=== PATIENT | male | born 1980 | race Caucasian/White ===

== ENCOUNTER 2016-12-15 19:40 | Inpatient (IN) | payer MEDICARE, MEDICAID ==
[~2016-12-15] VITALS: Ht 175.3 cm; Wt 68.0 kg
--- NOTE | 2016-12-15 19:45 | NUR ---
BB SELF; "SENT BY PMD I THINK I HAVE A FIB", NO C/O CHEST PAIN OR SOB. NAD NOTED, VSS, RESP EVEN AND UNLABORED, EKG DONE, PUT ON HOSPITAL GOWN, AND MONITOR. MD AT BEDSIDE.
[2016-12-15 20:57] LABS: BASOPHILS # (AUTO) 0.1 /CMM (0.0-0.2); BASOPHILS % (AUTO) 0.8 % (0.0-2.0); EOSINOPHILS % (AUTO) 0.2 % (0.0-6.0); HEMATOCRIT 49 % (39-51); HEMOGLOBIN 16.7 g/dL (13.5-17.5); LYMPHOCYTES # (AUTO) 1.9 /CMM (0.8-4.8); LYMPHOCYTES % (AUTO) 23.3 % (20.0-44.0); MEAN CORPUSCULAR HEMOGLOBIN 29 PG (26.0-33.0); MEAN CORPUSCULAR HGB CONC 34 g/dl (31.0-36.0); MEAN CORPUSCULAR VOLUME 85 fL (80-96); MONOCYTES # (AUTO) 0.6 /CMM (0.1-1.30); NEUTROPHILS # (AUTO) 5.5 /CMM (1.8-8.9); NEUTROPHILS % (AUTO) 68.7 % (43.0-81.0); PLATELET COUNT (AUTO) 315 /CMM (150-450); RDW COEFFICIENT OF VARIATION 12.3 (11.5-15.0); WHITE BLOOD COUNT (AUTO) 8.1 K/uL (4.3-11.0)
--- NOTE | 2016-12-15 20:59 | NUR ---
BLOOD SAMPLE AND URINE SENT TO LAB
--- NOTE | 2016-12-15 21:01 | NUR ---
CALLED FOR TELE BED
[2016-12-15 21:07] LABS: CARBON DIOXIDE 23 mmol/L (21-32); CHLORIDE 104 mmol/L (98-107); CREATININE 1.2 mg/dL (0.6-1.3); GLUCOSE 116 mg/dL (74-106); POTASSIUM 3.4 mmol/L (3.5-5.1); SODIUM SERUM 140 mmol/L (136-145); UREA NITROGEN, BLOOD 12 mg/dL (7-18)
[2016-12-15 21:11] LABS: INR 0.9 (0.87-1.13); PROTHROMBIN TIME 9.4 SECS (9.5-12.7)
[2016-12-15 21:13] LABS: ALANINE AMINOTRANSFERASE 29 U/L (12-78); ALBUMIN 4.6 g/dL (3.4-5.0); ALCOHOL, BLOOD < 3 mg/dL (0-0); ALKALINE PHOSPHATASE 73 U/L (46-116); ASPARTATE AMINOTRANSFERASE 25 U/L (15-37); BILIRUBIN,TOTAL 0.3 mg/dL (0.2-1.0); TOTAL PROTEIN, SERUM 8.2 g/dL (6.4-8.2)
[2016-12-15] MEDS ORDERED: POTASSIUM CHLORIDE 20 MEQ TAB.PRT.SR PO ONE ×2 (21:30→21:37)
[2016-12-15] MEDS ORDERED: ENOXAPARIN SODIUM 60 MG/0.6 ML DISP.SYRIN SQ ONE (21:30)
[2016-12-15] MEDS ORDERED: ENOXAPARIN SODIUM 80 MG/0.8 ML DISP.SYRIN SQ ONE (21:35)
[2016-12-15 22:22] LABS: THYROID STIMULATING HORMONE 0.577 uIU/mL (0.358-3.74)
[2016-12-15] MEDS ORDERED: Z GUARD REMEDY 2 OZ OINT TP PRN (23:00)
[2016-12-15] MEDS ORDERED: MAGNESIUM HYDROXIDE 30 ML UDC PO PRN (23:00)
[2016-12-15] MEDS ORDERED: ZOLPIDEM TARTRATE 5 MG TABLET PO PRN (23:00)
[2016-12-15] MEDS ORDERED: ONDANSETRON HCL/PF 4 MG/2 ML VIAL IVP PRN (23:00)
[2016-12-15] MEDS ORDERED: HYDROCODONE/APAP 5/325MG 1 EACH TABLET PO PRN (23:00)
[2016-12-15 23:05] VITALS: BP 125/83
[2016-12-15 23:30] VITALS: BP 125/83
[2016-12-15] MEDS ORDERED: ENOXAPARIN SODIUM 40 MG/0.4 ML DISP.SYRIN SQ SCH (23:30)
[2016-12-15] MEDS ORDERED: GABA100C PO (23:39)
[2016-12-16 04:00] VITALS: BP 123/71
--- NOTE | 2016-12-16 06:38 | NUR ---
TEL RN NOTES AWAKE & RESPONSIVE. NOT IN ANY DISTRESS. NO SOB NOTED. DENIES ANY PAIN OR DISCOMFORT AT THIS TIME. ON TELE AFIB @ 70S WITH IV-HL PATENT & INTACT. MONITORED ACCORDINGLY. CALL LIGHT WITHIN REACH. BED IN LOWEST POSITION. SR UP X 2 FOR SAFETY. WILL ENDORSE TO NEXT SHIFT.
--- NOTE | 2016-12-16 07:10 | NUR ---
OUTDOOR STUDIES PROFESSOR OPENING NOTES RECEIVED PT FROM NIGHTSHIFT NURSE IN STABLE CONDITION. PT IS A/O X3. NO SOB OR SIGNS OF DISTRESS NOTED. BREATHING IS EVEN AND UNLABORED. PT DENIES ANY CHEST PAIN OR PALPITATIONS AT THIS TIME. HE IS CURRENTLY A FLUTTER ON THE TELE MONITOR WITH A HR OF 82. IV PRESENT ON LEFT HAND 22G HL. IV IS PATENT AND INTACT. NO REDNESS OR SIGNS OF INFILTRATION NOTED. BED IN LOW LOCKED POSITION, SIDE RAILS UP X2, CALL LIGHT WITHIN REACH. WILL CONTINUE TO MONITOR.
[2016-12-16 08:00] VITALS: BP 138/88
[2016-12-16 08:36] LABS: BASOPHILS % (AUTO) 0.3 % (0.0-2.0); EOSINOPHILS % (AUTO) 0.2 % (0.0-6.0); HEMATOCRIT 50 % (39-51); HEMOGLOBIN 16.8 g/dL (13.5-17.5); LYMPHOCYTES # (AUTO) 1.6 /CMM (0.8-4.8); LYMPHOCYTES % (AUTO) 30.4 % (20.0-44.0); MEAN CORPUSCULAR HEMOGLOBIN 29 PG (26.0-33.0); MEAN CORPUSCULAR HGB CONC 34 g/dl (31.0-36.0); MEAN CORPUSCULAR VOLUME 85 fL (80-96); MONOCYTES # (AUTO) 0.6 /CMM (0.1-1.30); MONOCYTES % (AUTO) 11.6 % (2.0-12.0); NEUTROPHILS % (AUTO) 57.5 % (43.0-81.0); PLATELET COUNT (AUTO) 280 /CMM (150-450); RDW COEFFICIENT OF VARIATION 13.3 (11.5-15.0); RED BLOOD CELL COUNT(AUTO) 5.82 MIL/uL (4.5-6.0); WHITE BLOOD COUNT (AUTO) 5.3 K/uL (4.3-11.0)
[2016-12-16] MEDS ORDERED: RIVAROXABAN 10 MG TABLET PO SCH (08:45)
[2016-12-16 08:53] LABS: CALCIUM, SERUM 9.9 mg/dL (8.5-10.1); CARBON DIOXIDE 25 mmol/L (21-32); CHLORIDE 109 mmol/L (98-107); GLUCOSE 105 mg/dL (74-106); MAGNESIUM 1.9 mg/dL (1.8-2.4); PHOSPHORUS 2.1 mg/dL (2.5-4.9); POTASSIUM 4.2 mmol/L (3.5-5.1); SODIUM SERUM 143 mmol/L (136-145); UREA NITROGEN, BLOOD 13 mg/dL (7-18)
[2016-12-16 08:54] LABS: CHOLESTEROL 162 mg/dL (<200); HDL CHOLESTEROL 60 mg/dL (40-60); LDL 90 mg/dL (0-99); TRIGLYCERIDES 40 mg/dL (30-150)
[2016-12-16 09:00] LABS: TROPONIN I < 0.017 ng/mL (0.00-0.056)
[2016-12-16] MEDS: METOPROLOL TARTRATE 50 MG TABLET PO SCH ×2 (09:17→21:17)
[2016-12-16] MEDS ORDERED: KEY,NONCONTROL,TO KEEP IN PYXI 1 EA MC ONE (11:01)
[2016-12-16 12:00] VITALS: BP 123/87
[2016-12-16 16:00] VITALS: BP 122/83
[2016-12-16] MEDS ORDERED: K PHOS NEUTRAL 250 MG TABLET PO ONE (16:30)
--- NOTE | 2016-12-16 17:43 | NUR ---
Spoke with patient,he lives alone independently. He is ambulatory and physically active.No DME or homehealth reported. His friend Brooke can provide transportation upon discharge. He was given instructions to f/u with (cardiology) after discharge. Addendum: 12/16/16 at 1743 by ELYSSA ENCARNACION RN Amended: Links added.
--- NOTE | 2016-12-16 19:05 | NUR ---
LOOM FIXER CLOSING NOTES PT REMAINS IN STABLE CONDITION. DENIES ANY CHEST PAIN AT THIS TIME OR PALPITATIONS. VITALS STABLE THROUGHOUT SHIFT. ALL NEEDS MET AND ORDERS CARRIED OUT ACCORDINGLY. ALL SAFETY MEASURES IN PLACE. WILL ENDORSE TO NIGHTSHIFT NURSE FOR NATHALIA
[2016-12-16 20:00] VITALS: BP 115/71
--- NOTE | 2016-12-16 20:28 | NUR ---
TELE/RN PATIENT IS AWAKE, ALERT, ORIENTED, COMFORTABLE, NO C/O PAIN, NO DISTRESS NOTED, CALL LIGHT IN REACH. WILL MONITOR.
[2016-12-16] MEDS ORDERED: ENOXAPARIN SODIUM 40 MG/0.4 ML DISP.SYRIN SQ SCH (21:00)
[2016-12-16] MEDS: ACETAMINOPHEN 325 MG TABLET PO PRN (21:18)
--- NOTE | 2016-12-16 21:20 | NUR ---
TELE/RN C/O HEADACHE, TYLENOL 650 MG PO WAS GIVEN ORDERED. WILL MONITOR.
[2016-12-17] VITALS: BP 94/52
--- NOTE | 2016-12-17 | NUR ---
TELE/RN SLEEPING, AROUSABLE, APPEAR COMFORTABLE, NO SIGNS OF DISTRESS NOTED, CALL LIGHT IN REACH. WILL CONTINUE TO MONITOR.
[2016-12-17 04:00] VITALS: BP 112/68
--- NOTE | 2016-12-17 06:49 | NUR ---
TELE/RN PATIENT SLEEPING, APPEAR COMFORTABLE, BREATHING EVEN AND UNLABORED, NO SIGNS OF DISTRESS NOTED, CALL LIGHT IN REACH. ALL NEEDS ATTENDED AT THIS TIME. WILL CONTINUE TO MONITOR.
--- NOTE | 2016-12-17 07:20 | NUR ---
POLISHING WHEEL REPAIRER OPENING NOTES RECEIVED PT FROM NIGHTSHIFT NURSE IN STABLE CONDITION. PT IS A/O X3. NO SOB OR SIGNS OF DISTRESS NOTED. BREATHING IS EVEN AND UNLABORED. PT DENIES ANY CHEST PAIN OR PALPITATIONS AT THIS TIME. HE IS CURRENTLY A FIB ON THE TELE MONITOR WITH A HR OF 86. IV PRESENT ON LEFT HAND 22G HL. IV IS PATENT AND INTACT. NO REDNESS OR SIGNS OF INFILTRATION NOTED. BED IN LOW LOCKED POSITION, SIDE RAILS UP X2, CALL LIGHT WITHIN REACH. WILL CONTINUE TO MONITOR.
[2016-12-17 08:00] VITALS: BP 125/73
[2016-12-17 09:00] VITALS: BP 115/66
[2016-12-17] MEDS: METOPROLOL TARTRATE 50 MG TABLET PO SCH (09:00)
[2016-12-17] MEDS: ACETAMINOPHEN 325 MG TABLET PO PRN (09:50)
--- NOTE | 2016-12-17 11:40 | NUR ---
MS INSERT CUTTER NOTES PT WAS DISCHARGED FROM UNIT IN STABLE CONDITION. ALL NEEDS WERE MET DURING SHIFT AND ORDERS CARRIED OUT ACCORDINGLY. ALL DISCHARGE INSTRUCTIONS DISCUSSED IN FULL WITH PT INCLUDING PRESCRIPTION AND FOLLOW UP APPOINTMENT. PT VERBALIZED HIS UNDERSTANDING OF ALL DISCHARGE INSTRUCTIONS/MATERIAL AND SIGNED ALL DISCHARGE PAPERWORK. HE LEFT WITH ALL OF HIS BELONGINGS VIS BUS. HE WAS ESCORTED FROM THE HOSPITAL FROM [facility].
== END 2016-12-17 12:10 | disposition home or self-care (01) | DRG 309 ==
LOC: ER 19:53 → TELE 22:42
PROVIDERS: ADMIT Nurse Practitioner Acute Care; ATTEND Nurse Practitioner Acute Care
DX: I48.91 Unspecified atrial fibrillation (principal); D68.59 Other primary thrombophilia; E87.6 Hypokalemia; F41.9 Anxiety disorder, unspecified; R73.9 Hyperglycemia, unspecified
CPT/HCPCS: 36415; 71010-TC; 80048-TC; 80053-TC; 80061-TC; 80305; 83735-TC; 84100-TC; 84439-TC; 84443-TC; 84481; 84484-TC; 85025-TC; 85730-TC; 87081-TC; 93307-TC; A4606; G0480; J1650; Z7610